=== PATIENT | female | born 1950 | race Caucasian/White ===

== ENCOUNTER → 2022-12-09 10:30 | Outpatient (BNVA) | payer MEDICARE, SELFPAY | PROVIDERS: Visit Provider Nurse Practitioner Family | DX: R39.9 Unspecified symptoms and signs involving the genitourinary system (principal); J32.9 Chronic sinusitis, unspecified; N39.0 Urinary tract infection, site not specified; B95.2 Enterococcus as the cause of diseases classified elsewhere | CPT/HCPCS: 81000; 87077; 87086; 87184 ==